=== PATIENT | male | born 1960 | race American Indian/Alaskan Native ===

== ENCOUNTER 2019-05-11 08:38 | Emergency (ER) | payer SELFPAY ==
--- NOTE | 2019-05-11 08:57 | Event Note ---
Date of service: 05/11/19 Face to Face: 58-year-old gentleman presenting with clinical alcohol intoxication. Head endorsed to other people right-sided abdominal pain, and shortness of breath. He does not endorse shortness of breath to this provider, however, endorses chronic right-sided abdominal pain. He is not homicidal or suicidal. There is no indication of trauma. He is moving 4 extremities without difficulty. Plan is to obtain screening laboratory studies, CT scan of the brain, CT scan of the abdomen and pelvis, EKG, and observe the patient pending clinical sobriety.
--- NOTE | 2019-05-11 09:23 | Emergency Department Report ---
ED General Adult HPI - General Stated complaint: UNRESPONSIVE Time Seen by Provider: 05/11/19 08:51 - History of Present Illness Initial comments: 58-year-old -Tog[place] male with unknown past medical history presents to the emergency department where he was dropped off by his friend at the front office help what appears to be in an intoxicated having a very strong smell of EtOH. reports having shortness of breath and also pain to the epigastric region. There is no apparent nausea vomiting. There is no palliative or provocative factors. He reports that he has been drinking prior to arrival but the amount is unknown. Question about diarrhea, fever, hemoptysis, hematemesis, headache, blurred vision, dizziness, dysuria, rashes but not responding with answers. Radiation: non-radiation Quality: dull Consistency: constant Improves with: none Worsens with: none - Related Data Allergies Allergy/AdvReac Type Severity Reaction Status Date / Time No Known Allergies Allergy Unverified 05/11/19 09:44 ED Review of Systems ROS: Stated complaint: UNRESPONSIVE Other details as noted in HPI Comment: All other systems reviewed and negative ED Physical Exam - General General appearance: in no apparent distress, appears intoxicated - Head Head exam: Present: atraumatic, normocephalic - Eye Eye exam: Present: normal appearance, PERRL, EOMI. Absent: periorbital swel ling, periorbital tenderness Pupils: Present: normal accommodation - ENT ENT exam: Present: normal exam, mucous membranes moist, TM's normal bilaterally - Neck Neck exam: Present: normal inspection - Respiratory Respiratory exam: Present: normal lung sounds bilaterally. Absent: respiratory distress, wheezes, rales, chest wall tenderness, accessory muscle use - Cardiovascular Cardiovascular Exam: Present: regular rate, normal rhythm. Absent: systolic murmur, diastolic murmur, rubs, gallop - GI/Abdominal GI/Abdominal exam: Present: soft, tenderness (family epigastric region with palpation), normal bowel sounds. Absent: rebound, rigid, organomegaly - Rectal Rectal exam: Present: deferred - Extremities Exam Extremities exam: Present: normal inspection, normal capillary refill - Back Exam Back exam: Present: normal inspection, full ROM. Absent: CVA tenderness (R), CVA tenderness (L), muscle spasm, paraspinal tenderness - Neurological Exam Neurological exam: Present: other (he is arousable no acute distress) - Psychiatric Psychiatric exam: Present: normal affect, normal mood - Skin Skin exam: Present: warm, dry, intact, normal color. Absent: rash ED Course Vital Signs 05/11/19 05/11/19 05/11/19 08:45 09:00 09:47 Temperature 98.4 F Pulse Rate 78 72 Respiratory 19 19 24 Rate Blood Pressure Blood Pressure 131/100 [Left] O2 Sat by Pulse 99 99 95 Oximetry 05/11/19 05/11/19 05/11/19 10:00 10:15 10:30 Temperature Pulse Rate 71 75 68 Respiratory 19 20 18 Rate Blood Pressure 121/80 111/78 117/87 Blood Pressure [Left] O2 Sat by Pulse 94 96 95 Oximetry 05/11/19 05/11/19 05/11/19 10:45 11:00 11:15 Temperature Pulse Rate 69 70 75 Respiratory 18 19 17 Rate Blood Pressure 125/83 132/84 131/94 Blood Pressure [Left] O2 Sat by Pulse 94 95 94 Oximetry 05/11/19 05/11/19 05/11/19 11:30 11:45 12:00 Temperature Pulse Rate 73 70 79 Respiratory 21 17 12 Rate Blood Pressure 146/89 151/88 142/90 Blood Pressure [Left] O2 Sat by Pulse 93 93 Oximetry 05/11/19 05/11/19 05/11/19 12:15 12:30 12:45 Temperature Pulse Rate 80 79 78 Respiratory 23 19 19 Rate Blood Pressure 151/102 130/91 132/86 Blood Pressure [Left] O2 Sat by Pulse Oximetry 05/11/19 05/11/19 05/11/19 13:00 13:15 13:30 Temperature Pulse Rate 75 77 73 Respiratory 19 18 20 Rate Blood Pressure 134/83 132/87 137/92 Blood Pressure [Left] O2 Sat by Pulse Oximetry 05/11/19 05/11/19 05/11/19 13:45 13:58 14:00 Temperature Pulse Rate 79 72 Respiratory 23 19 Rate Blood Pressure 147/95 142/87 Blood Pressure [Left] O2 Sat by Pulse 98 Oximetry 05/11/19 05/11/19 05/11/19 14:15 14:30 14:45 Temperature Pulse Rate 87 76 80 Respiratory 22 19 18 Rate Blood Pressure 148/97 140/86 140/93 Blood Pressure [Left] O2 Sat by Pulse Oximetry 05/11/19 05/11/19 05/11/19 14:54 15:00 15:15 Temperature Pulse Rate 82 76 Respiratory 21 19 Rate Blood Pressure 142/89 152/89 Blood Pressure [Left] O2 Sat by Pulse 97 Oximetry 05/11/19 05/11/19 05/11/19 15:30 15:45 16:00 Temperature Pulse Rate 85 71 84 Respiratory 23 19 20 Rate Blood Pressure 135/76 137/80 131/82 Blood Pressure [Left] O2 Sat by Pulse 98 Oximetry - Reevaluation(s) Reevaluation #1: 05/11/19 17:13 This 58-year-old male alert and oriented 3 stenting on his own power. Peaking in full sentences. Very jovial no acute distress noted. Spoke with patient and family about his EtOH addiction and his COPD - Consultations Consultation #1: 05/11/19 09:27 Case was discussed with Dr. Eden see his note for more details ED Medical Decision Making - Lab Data Result diagrams: 05/11/19 09:08 05/11/19 09:08 - EKG Data When compared to previous EKG there are: no significant change Interpretation: no acute changes - Medical Decision Making 58-year-old -[place] male smoker and EtOH drinker presented to the emergency department because of the friend in intoxicated fashion with laboratory data to support of those findings. CT scan was normal as he did complain of some abdominal discomfort no pancreatitis noted. He did have some shortness of breath and there was suspicion for emphysema on the imaging. Patient reports no known history of any emphysema but is a heavy smoker. States that he does consume a lot of beer and an vodka on the daily basis we discussed the need to reduce the utilization towards sobriety. Currently he is awake alert and oriented no acute distress. Patient is being discharged with his son home he resides with at this present time. Discussed with son in great detail the need to reduce the alcohol intake and to follow up with primary care to begin treatment and further evaluation of the suspected emphysema/COPD. They expressed full understanding. Patient is a jovial mood no acute distress Critical care attestation.: If time is entered above; I have spent that time in minutes in the direct care of this critically ill patient, excluding procedure time. ED Disposition Clinical Impression: COPD (chronic obstructive pulmonary disease), ETOH abuse, Intoxication Disposition: DC-01 TO HOME OR SELFCARE Is pt being admited?: No Does the pt Need Aspirin: No Condition: Stable Instructions: Chronic Obstructive Pulmonary Disease (ED), Emphysema (ED), Alcohol Intoxication (ED), At-Risk Alcohol Use (ED), Alcohol Withdrawal (ED), How to Stop Smoking (ED) Referrals: PRIMARY CARE, [Primary Care Provider] - 3-5 Days [facility] [Provider Group] - 3-5 Days
[2019-05-11 09:31] LABS: Hemoglobin 16.1 gm/dl (11.8-15.2); Mean Corpuscular HGB Conc 34 % (32-34); Mean Corpuscular Volume 101 fl (84-94); Platelet Count 182 K/mm3 (140-440); Red Blood Count 4.78 M/mm3 (3.65-5.03); Red Cell Distribution Width 13.4 % (13.2-15.2)
[2019-05-11 09:47] LABS: Alanine Aminotransferase 16 units/L (7-56); Albumin 4.2 g/dL (3.9-5); BUN/Creatinine Ratio 11; Blood Urea Nitrogen 8 mg/dL (9-20); Calcium 8.3 mg/dL (8.4-10.2); Hemolysis Index 36
--- NOTE | 2019-05-11 10:01 | Cat Scan Report ---
CT head/brain wo con INDICATION / CLINICAL INFORMATION: 58 years Male; etoh ams. TECHNIQUE: Routine CT head without contrast. All CT scans at this location are performed using CT dos e reduction for ALARA by means of automated exposure control. COMPARISON: None. FINDINGS: BRAIN / INTRACRANIAL CONTENTS: The brain appears to demonstrate appropriate attenuation for age. The ventricular system is within normal limits in size and configuration. There is no clear CT ends of ac [place] intracranial hemorrhage or significant mass effect at. CRANIOCERVICAL JUNCTION: No significant abnormality. ORBITS: No significant abnormality of visualized orbits. SINUSES / MASTOIDS: The visualized paranasal sinuses are clear. ADDITIONAL FINDINGS: None. IMPRESSION: 1. There is no clear CT evidence of acute intracranial process. Signer Name: Reed Harris MD Signed: 05/11/2019 9:56 AM Workstation Name: [id number]
--- NOTE | 2019-05-11 10:06 | XRay Report ---
CHEST 2 VIEWS INDICATION / CLINICAL INFORMATION: Shortness of breath. COMPARISON: None available. FINDINGS: SUPPORT DEVICES: None. HEART / MEDIASTINUM: No significant abnormality. LUNGS / PLEURA: No significant pulmonary or pleural abnormality. No pneumothorax. ADDITIONAL FINDINGS: No significant additional findings. IMPRESSION: 1. No acute findings. Signer Name: Chas Herrera MD Signed: 05/11/2019 10:01 AM Workstation Name: [id number]
--- NOTE | 2019-05-11 10:13 | Cat Scan Report ---
CT ABDOMEN AND PELVIS WITHOUT CONTRAST INDICATION / CLINICAL INFORMATION: Abdominal pain. TECHNIQUE: Axial CT images were obtained through the abdomen and pelvis without IV contrast. All CT scans at [facility] location are performed using CT dose reduction for ALARA by means of automated exposure control. COMPARISON: None available. FINDINGS: Emphysematous changes and probable chronic interstitial opacities are present in the lung bases. No f ocal consolidation. No evident pleural fluid or pneumothorax. Heart size is normal. No pericardial fl uid. The unenhanced liver, gallbladder, spleen, adrenals, kidneys, urinary bladder, pancreas, stomach, int estines, and appendix demonstrate no significant abnormality. No abdominal, pelvic or inguinal lympha denopathy. No free fluid, free air, organized fluid collection, or evidence of acute inflammatory pro cess is seen. The major abdominal and pelvic vessels are unremarkable by noncontrast technique. There are degenerative changes of the lumbar spine, but no acute skeletal abnormality is seen. The hi ps and sacroiliac joints are unremarkable. Straightening of the normal lumbar lordosis may be positio nal. IMPRESSION: 1. No acute finding in the abdomen and pelvis. 2. Emphysema changes and chronic interstitial markings at the lung bases. Signer Name: Chas Herrera MD Signed: 05/11/2019 10:08 AM Workstation Name: [id number]
[2019-05-11 14:35] LABS: Bacteria,Urine 1+ /HPF (Negative); Bilirubin,Urine NEG (Negative); Blood,Urine NEG (Negative); Color,Urine Straw (Yellow); Mucus,Urine FEW /HPF; Protein,Urine <15 mg/dL mg/dL (Negative); Urobilinogen,Urine < 2.0 mg/dL (<2.0)
[2019-05-11 14:41] LABS: Amphetamine Screen,Urine PRESUMPTIVE NEGATIVE; Benzodiazepines Screen,Urine PRESUMPTIVE NEGATIVE; Cannabinoid Screen,Urine PRESUMPTIVE NEGATIVE; Methadone Screen,Urine PRESUMPTIVE NEGATIVE; Opiate Screen,Urine PRESUMPTIVE NEGATIVE; WBC,Urine < 1.0 /HPF (0.0-6.0)
[2019-05-11 15:08] LABS: Cocaine Screen,Urine PRESUMPTIVE POSITIVE
[2019-05-11 18:09] VITALS: BP 138/84
== END 2019-05-11 17:30 | disposition home or self-care (01) ==
LOC: ED 08:38
DX: F10.129 Alcohol abuse with intoxication, unspecified (principal); J44.9 Chronic obstructive pulmonary disease, unspecified
CPT/HCPCS: 36415; 70450; 71046; 74176; 80053; 80307; 80320; 81001; 82550; 82962; 83690; 83735; 85027; 93005; 93010; G0480